=== PATIENT | female | born 1945 | race Caucasian/White ===

== ENCOUNTER 2017-08-21 10:18 | Outpatient (CLI) | payer MEDICARE, OTHER ==
--- NOTE | 2017-08-21 15:34 | MMO ---
LEFT UNILATERAL DIAGNOSTIC MAMMOGRAM: History: 72-year-old female presents for additional views of the left breast to evaluate an asymmetric densit y in the central subareolar aspect of the left breast. Additional views including focal mag compress ion spot views in CC, MLO in the ML projections and non-mag mediolateral and rolled CC views demonst rates that this asymmetric density appears to compress out and does not appear to represent a real m ass. IMPRESSION: Asymmetric density appears to compression out with these additional views. BIRADS category 2 - benig n findings. Continued routine screening mammograms. POS: CHARLES
--- NOTE | 2017-08-21 15:38 | ULT ---
LEFT BREAST ULTRASOUND: History: Ultrasound examination done along with left unilateral diagnostic mammogram to evaluate an asymmetri c density in the subareolar aspect of the left breast on prior screening study. FINDINGS: Attention was paid to the retroareolar region of the left breast. No solid or cystic mass or other s ignificant abnormality. IMPRESSION: BIRADS category 2 - benign findings. Continued annual follow-up mammograms. POS: JONNY
== END 2017-08-21 10:19 | disposition home or self-care (01) ==
LOC: MAMMO 10:18
PROVIDERS: ATTEND Family Medicine
DX: R92.2 Inconclusive mammogram (principal)
CPT/HCPCS: 76642; G0206

== ENCOUNTER 2018-12-12 10:19 | Outpatient (CLI) | payer MEDICARE | END 2018-12-12 10:20 | disposition home or self-care (01) | LOC: BICMAMMO 10:19 | PROVIDERS: ATTEND Family Medicine | DX: Z12.31 Encounter for screening mammogram for malignant neoplasm of breast (principal); R92.1 Mammographic calcification found on diagnostic imaging of breast; Z80.3 Family history of malignant neoplasm of breast | CPT/HCPCS: 77063; 77067 ==

== ENCOUNTER 2019-05-08 13:10 | Outpatient (CLI) | payer MEDICARE ==
--- NOTE | 2019-05-11 07:50 | BD ---
EXAM: DEXA bone density examination HISTORY: 74-year-old postmenopausal female for screening COMPARISON: None FINDINGS: L1--bone mineral density 0.918 g/sq cm; T score -0.7 L2--bone mineral density 0.841 g/sq cm; T score -1.7 L3--bone mineral density 0.837 g/sq cm; T score -2.2 L4--bone mineral density 0.924 g/sq cm; T score -1.2 Total L1-L4--bone mineral density 0.880 g/sq cm; T score -1.5 Left femoral neck--bone mineral density0.77; T score -1.1 Total proximal left femur--bone mineral density 0.863; T score -0.6 IMPRESSION: Osteopenia. Fracture is not reported as patient has been treated for osteoporosis.
== END 2019-05-08 13:11 | disposition home or self-care (01) ==
LOC: BICMAMMO 13:10
PROVIDERS: ATTEND Internal Medicine Rheumatology
DX: M81.0 Age-related osteoporosis without current pathological fracture (principal); M85.89 Other specified disorders of bone density and structure, multiple sites
CPT/HCPCS: 77080

== ENCOUNTER 2020-06-10 13:08 | Outpatient (CLI) | payer MEDICARE ==
--- NOTE | 2020-06-10 13:43 | BD ---
DEXA bone density examination HISTORY: 75-year-old postmenopausal female for screening COMPARISON: None FINDINGS: L1--bone mineral density 0.898 g/sq cm; T score -0.8 L2--bone mineral density 0.897 g/sq cm; T score minus 1. L3--bone mineral density 0.86 g/sq cm; T score -2.0 L4--bone mineral density 0.932 g/sq cm; T score -1.2 Total L1-L4--bone mineral density 0.898 g/sq cm; T score -1.4 Left femoral neck--bone mineral density 0.729 g/sq cm; T score -1.1 Total proximal left femur--bone mineral density 0.924 g/sq cm ; T score -0.2. There has been interval increase in bone mineral density of the left femoral neck and lumbar spine co mpared to study on 05/08/2019. Increase in bone mineral density left femoral neck by 23.1% and lumbar spine by 40.6%. IMPRESSION: Mild osteopenia of the lumbar spine and left femoral neck.
== END 2020-06-10 13:09 | disposition home or self-care (01) ==
LOC: BICMAMMO 13:08
PROVIDERS: ATTEND Obstetrics & Gynecology
DX: Z13.820 Encounter for screening for osteoporosis (principal); M85.89 Other specified disorders of bone density and structure, multiple sites
CPT/HCPCS: 77080

== ENCOUNTER 2020-09-23 10:17 | Outpatient (CLI) | payer MEDICARE ==
--- NOTE | 2020-09-23 11:26 | MMO ---
Bilateral MAMMO Bilat Screen [facility]. CLINICAL HISTORY: Patient is 75 years old and is seen for screening. The patient has no family history of breast cancer. The patient has no personal history of cancer. VIEWS: The views performed were: bilateral craniocaudal with tomosynthesis and bilateral mediolateral oblique with tomosynthesis. FILMS COMPARED: The present examination has been compared to a prior imaging study performed at [facility] on 12/12/2018. This study has been interpreted with the assistance of computer-aided detection. MAMMOGRAM FINDINGS: The breasts are heterogeneously dense, which could obscure a lesion on mammography. There are benign appearing calcifications seen in both breasts. There are no suspicious masses, suspicious calcifications, or new areas of architectural distortion. IMPRESSION: THERE IS NO MAMMOGRAPHIC EVIDENCE OF MALIGNANCY. A ROUTINE FOLLOW-UP MAMMOGRAM IN 1 YEAR IS RECOMMENDED. THE RESULTS OF THIS EXAM WERE SENT TO THE PATIENT. ACR BI-RADS Category 2 - Benign finding MAMMOGRAPHY NOTE: 1. A negative mammogram report should not delay a biopsy if a dominant of clinically suspicious mass is present. 2. Approximately 10% to 15% of breast cancers are not detected by mammography. 3. Adenosis and dense breasts may obscure an underlying neoplasm. Reported by: TEREZA GARCIA MD Electonically Signed: [id number]
== END 2020-09-23 10:18 | disposition home or self-care (01) ==
LOC: BICMAMMO 10:17
PROVIDERS: ATTEND Obstetrics & Gynecology
DX: Z12.31 Encounter for screening mammogram for malignant neoplasm of breast (principal)
CPT/HCPCS: 77063; 77067

== ENCOUNTER → 2023-06-10 | Day surgery (SDC) | payer MEDICARE | LOC: SDC 13:01 | PROVIDERS: ATTEND Surgery | DX: K44.9 Diaphragmatic hernia without obstruction or gangrene (principal) | CPT/HCPCS: 91010 ==

== ENCOUNTER 2024-02-12 08:28 | Outpatient (CLI) | payer MEDICARE ==
[2024-02-12] MEDS ORDERED: Iopamidol 370 76% 100 ML VIAL ONE (12:58)
== END 2024-02-12 08:29 | disposition home or self-care (01) ==
LOC: CT 08:28
PROVIDERS: ATTEND Internal Medicine Gastroenterology
DX: K30 Functional dyspepsia (principal); R13.10 Dysphagia, unspecified; R63.4 Abnormal weight loss
CPT/HCPCS: 74177

== ENCOUNTER 2024-12-29 10:20 | Outpatient (CLI) | payer MEDICARE | END 2024-12-29 10:21 | disposition home or self-care (01) | LOC: BICCT 10:20 | PROVIDERS: ATTEND Family Medicine | DX: E04.1 Nontoxic single thyroid nodule (principal); R91.8 Other nonspecific abnormal finding of lung field; K44.9 Diaphragmatic hernia without obstruction or gangrene; I77.810 Thoracic aortic ectasia; I25.10 Atherosclerotic heart disease of native coronary artery without angina pectoris; Z90.81 Acquired absence of spleen | CPT/HCPCS: 71250; 76536 ==